=== PATIENT | male | born 1975 | race Caucasian/White ===

== ENCOUNTER 2019-05-04 07:23 | Emergency (ER) | payer OTHER ==
--- NOTE | 2019-05-04 07:41 | EDM.PDOC ---
ED HPI GENERAL MEDICAL PROBLEM - General Chief Complaint: ENT Problem Stated Complaint: SWOLLEN THROAT Time Seen by Provider: 05/04/19 07:30 Source of Information: Reports: Patient History Limitations: Reports: No Limitations - History of Present Illness INITIAL COMMENTS - FREE TEXT/NARRATIVE: 44-year-old male presents to the ED with a swelling in the posterior aspect of his oropharynx and he awoke with this morning. He is here in town visiting and doing a horse shodding class. Examination reveals marked swelling of the uvula probably 4-5 times normal size and diffuse erythema. Just particularly on the left side of the posterior oropharynx. Tonsils are absent. Mandibular glands are mildly swollen as well. Throat was quite sore when he awoke this morning now somewhat better. Not not aware of any definitive fever. Vital signs showed temperature of 36.9. No blood pressure is elevated but did come down while he was in the ED. Onset: Today Onset Date: 05/04/19 Onset Time: 07:00 Duration: Minutes: Location: Reports: Neck Quality: Reports: Ache (Throat pain with swelling in the back of his throat.), Other Severity: Moderate (Irritation more than pain.) Improves with: Reports: None Worsens with: Reports: Other Context: Reports: Other (Spontaneous occurrence. Awoke with symptoms this morning). Denies: Activity (More awareness with swallowing), Exercise, Lifting , Sick Contact, Trauma Associated Symptoms: Reports: Cough. Denies: Confusion, Chest Pain, cough w sputum, Diaphoresis, Fever/Chills, Headaches (Mild dry cough), Loss of Appetite , Malaise, Nausea/Vomiting, Rash, Seizure, Shortness of Breath, Syncope, Weakness Treatments SHUTTLER: Reports: Other (see below) - Related Data Allergies Allergy/AdvReac Type Severity Reaction Status Date / Time No Known Allergies Allergy Verified 05/04/19 07:33 Home Meds: Home Meds . [No Known Home Meds] 05/04/19 [History] Doxycycline [Vibramycin] 100 mg PO BID #20 cap 05/04/19 [Rx] Past Medical History - Past Health History Medical/Surgical History: Denies Medical/Surgical History Social & Family History - Tobacco Use Smoking Status *Q: Never Smoker - Caffeine Use Caffeine Use: Reports: Coffee, Energy Drinks - Recreational Drug Use Recreational Drug Use: No - Living Situation & Occupation Occupation: Employed ED ROS ENT - Review of Systems Review Of Systems: See Below Constitutional: Denies: Fever, Chills, Malaise, Weakness, Fatigue, Decreased Appetite, Weight Loss HEENT: Reports: Throat Pain, Throat Swelling Respiratory: Reports: Cough Cardiovascular: Reports: No Symptoms (Nonproductive cough) Endocrine: Reports: No Symptoms GI/Abdominal: Reports: No Symptoms : Reports: No Symptoms Musculoskeletal: Reports: No Symptoms Skin: Reports: No Symptoms Neurological: Reports: No Symptoms Psychiatric: Reports: No Symptoms Hematologic/Lymphatic: Reports: No Symptoms Immunologic: Reports: No Symptoms ED EXAM, ENT - Physical Exam Exam: See Below Exam Limited By: No Limitations General Appearance: Alert, WD/WN, No Apparent Distress, Other (Vital signs are normal.) Eye Exam: Bilateral Eye: Normal Inspection Ears: Normal TMs Mouth/Throat: Pharyngeal Erythema, Throat Pain, Throat Swelling, Uvular Edema ( uvula is 4-5 times normal in size. This was likely produced by snoring overnight. However it is erythematous with pharyngeal erythema along the posterior oropharynx as well and may represent an early strep infection.). No: Teething (Left side worse on the right.) Head: Atraumatic, Normocephalic Neck: Supple, Full Range of Motion, Lymphadenopathy (L), Lymphadenopathy (R) ( Mild mild) Respiratory/Chest: No Respiratory Distress, Lungs Clear, Normal Breath Sounds, No Accessory Muscle Use Cardiovascular: Normal Peripheral Pulses, Regular Rate, Rhythm, No Edema, No Gallop, No Murmur, No Rub Course - Vital Signs Last Recorded V/S: Last Vital Signs Temp 36.9 C 05/04/19 07:32 Pulse 94 05/04/19 07:32 Resp 15 05/04/19 07:32 BP 173/112 H 05/04/19 07:32 Pulse Ox 100 05/04/19 07:32 - Orders/Labs/Meds Orders: Active Orders 24 hr Category Date Time Status Ibuprofen [Motrin] Med 05/04/19 07:42 Once 600 mg PO ONETIME ONE - Radiology Interpretation Free Text/Narrative:: 44-year-old male presents the ED with swelling in the posterior oropharynx. He was quite tender when he woke this morning but somewhat better now. Examination reveals that his uvula is 4-5 times normal in size markedly edematous and mildly erythematous. Posterior oropharynx is also erythematous. Tonsils are absent. Suspect strep pharyngitis. Uvula may be swollen from snoring all night as well. LAD treated with doxycycline 100 mg twice a day for the next 8 days. Motrin 600 mg by mouth now to try and reduce inflammation.. Advise taking 2 tablets of the doxycycline first dose with food. Departure - Departure Time of Disposition: 07:39 Disposition: Home, Self-Care 01 Condition: Fair Clinical Impression: Uvulitis Pharyngitis Qualifiers: Pharyngitis/tonsillitis etiology: streptococcus Qualified Code(s): J02.0 - Streptococcal pharyngitis - Discharge Information *PRESCRIPTION DRUG MONITORING PROGRAM REVIEWED*: Not Applicable *COPY OF PRESCRIPTION DRUG MONITORING REPORT IN PATIENT RACHEL: Not Applicable Prescriptions: Doxycycline [Vibramycin] 100 mg PO BID #20 cap Referrals: PCP,None [Primary Care Provider] - Forms: ED Department Discharge Additional Instructions: Evaluation in the ER this morning in regards to markedly swollen uvula with some diffuse erythema of the posterior oropharynx most notably on the left side. Both submandibular glands are mildly elevated suggesting a early infection most likely caused by streptococcus. The uvula is about 4 times normal size due to swelling in this will go down over the day. Warm liquids will help it shrink in size. Antibiotics are to be doxycycline 100 mg twice daily for the next 8 days. Take 2 tablets first dose with food. Motrin 6 mg every 6 hours may help reduce the swelling and inflammation. - My Orders Last 24 Hours: My Active Orders 05/04/19 07:42 Ibuprofen [Motrin] 600 mg PO ONETIME ONE - Assessment/Plan Last 24 Hours: My Active Orders 05/04/19 07:42 Ibuprofen [Motrin] 600 mg PO ONETIME ONE
[2019-05-04] MEDS ORDERED: Ibuprofen 600 MG Tab PO ONE (07:42)
== END 2019-05-04 07:58 | disposition home or self-care (01) ==
LOC: JD.ED 07:23
DX: J02.0 Streptococcal pharyngitis (principal); K12.2 Cellulitis and abscess of mouth
CPT/HCPCS: 99282; A9270; 99283